=== PATIENT | female | born 1940 | race Asian ===

== ENCOUNTER 2017-04-19 14:00 | Inpatient (IN) | payer OTHER, MEDICAID ==
[~2017-04-19] VITALS: Ht 152.4 cm; Wt 66.7 kg
[2017-04-19 14:23] VITALS: BP 161/86
--- NOTE | 2017-04-19 14:30 | NUR ---
PATIENT PRESENTS TO ED WITH C/O hematemesis this afternoon with severe dizziness----denies abdominal pain, denies black stools, denies recent injury hx----htn, rx----atenolol . DENIES DIARRHEA; SKIN IS PINK/WARM/DRY; AAOX4 WITH EVEN AND STEADY GAIT; LUNGS CLEAR BL; HR EVEN AND REGULAR; PT DENIES ANY FEVER, CP, SOB, OR COUGH AT THIS TIME; PATIENT STATES PAIN OF 0/10 AT THIS TIME; VSS; PATIENT POSITIONED FOR COMFORT; HOB ELEVATED; BEDRAILS UP X2; BED DOWN. ER MD MADE AWARE OF PT STATUS.
--- NOTE | 2017-04-19 14:39 | NUR ---
Patient transferred to bed 6 via wheelchair by tech. Accompanied by family. RN evaluating patient at bedside.
[2017-04-19 15:09] LABS: BASOPHILS # (AUTO) 0.4 K/uL (0.00-0.22); HEMATOCRIT 36.7 % (36-48); HEMOGLOBIN 12.4 g/dL (12.0-16.0); MEAN CORPUSCULAR HEMOGLOBIN 34 pg (27-31); MEAN CORPUSCULAR HGB CONC 34 g/dL (33-37); MEAN CORPUSCULAR VOLUME 101 fL (80-94); MONOCYTES # (AUTO) 0.5 K/uL (0.8-1.0); PLATELET COUNT (AUTO) 247 K/uL (140-450); RED BLOOD CELL COUNT(AUTO) 3.64 MIL/uL (4.20-5.40); WHITE BLOOD COUNT (AUTO) 7.9 K/uL (4.8-10.8)
[2017-04-19 15:24] LABS: ANION GAP 13.2 (8-16); CARBON DIOXIDE 25.7 mmol/L (21-32); CHLORIDE 97 mmol/L (98-107); CREATININE 0.6 mg/dL (0.6-1.3); GLUCOSE 174 mg/dL (74-106); POTASSIUM 3.9 mmol/L (3.5-5.1); SODIUM SERUM 132 mmol/L (136-145); UREA NITROGEN, BLOOD 10 mg/dL (7-18)
[2017-04-19] MEDS ORDERED: NACL 0.9% 1,000 ML IV ONE (15:25)
[2017-04-19 15:28] LABS: ALBUMIN 3.6 g/dL (3.4-5.0); ASPARTATE AMINOTRANSFERASE 23 U/L (15-37); TOTAL BILIRUBIN 0.7 mg/dL (0.0-1.0)
[2017-04-19 15:33] LABS: APPEARANCE,URINE CLEAR (CLEAR); BILIRUBIN,URINE NEGATIVE (NEGATIVE); BLOOD, URINE NEGATIVE (NEGATIVE); COLOR,URINE YELLOW (YELLOW); LEUKOCYTE ESTERASE ,URINE NEGATIVE (NEGATIVE); NITRITE, URINE NEGATIVE (NEGATIVE); PH,URINE 7.5 (5.0-9.0); UGLUCOSE NEGATIVE (NEGATIVE)
[2017-04-19 15:46] LABS: RBC,URINE NONE SEEN /HPF (0-5); WBC,URINE 0-5 (RARE) /HPF (0-5)
[2017-04-19] MEDS ORDERED: ACETAMINOPHEN 325 MG TAB PO PRN (17:50)
[2017-04-19] MEDS ORDERED: HYDROcodone/APAP 7.5/325 MG 1 TAB PO PRN (17:50)
[2017-04-19] MEDS ORDERED: MECLIZINE 25 MG TAB PO PRN (18:15)
--- NOTE | 2017-04-19 18:35 | NUR ---
Patient will be admitted to care of DR GARCIA. Admited to TELE. Will go to room 119A. Belongings list completed. Report to CINTHYA AMES.
[2017-04-19 19:07] LABS: CHOL/HDL RATIO 3.2 (1-4.5); FREE T4 (FREE THYROXINE) 1.35 ng/dL (0.76-1.46); MAGNESIUM 1.7 mg/dL (1.8-2.4); THYROID STIMULATING HORMONE 0.94 uIU/mL (0.34-3.74)
--- NOTE | 2017-04-19 19:15 | NUR ---
RECEIVED REPORT FROM ER NURSE, AWAITING PTS ARRIVAL ON THE UNIT.
--- NOTE | 2017-04-19 19:30 | NUR ---
PT ARRIVED ON THE UNIT VIA GURNEY. PT IS AAOX4, NO S/S OF DISTRESS NOTED. PT IS IN STABLE CONDITION. PT IS ON RA. IV TO R WRIST 18 G, PATENT AND INTACT. RESPIRATIONS ARE EVEN AND UNLABORED. BOWEL SOUNDS ACTIVE. SKIN IS INTACT. INITIAL ASSESSMENT COMPLETED. PLAN OF CARE DISCUSSED WITH PT AND FAMILY AT THE BEDSIDE, VERBALIZED UNDERSTANDING. ALL SAFETY PRECAUTIONS MET, CALL LIGHT WITHIN REACH, WILL CONTINUE TO MONITOR.
--- NOTE | 2017-04-19 19:35 | NUR ---
PT HAS YELLOW WRIST BAND IN PLACE, BED ALARM IS ON, PT HAS YELLOW SOCKS ON, YELLOW SIGN POSTED OUTSIDE OF ROOM.
--- NOTE | 2017-04-19 19:45 | NUR ---
PT WILL BE NPO PER MD ORDERS. PT VERBALIZED UNDERSTANDING. PT WILL BE GOING TO CT SCAN, PT EDUCATED AND VERBALIZED UNDERSTANDING.
[2017-04-19 20:00] VITALS: BP 146/78
[2017-04-19] MEDS ORDERED: MAGNESIUM OXIDE 400 MG TAB PO SCH (20:30)
[2017-04-19] MEDS ORDERED: LORA-476 PO (20:37)
[2017-04-19] MEDS ORDERED: LOSA25TA22 PO (20:37)
[2017-04-19] MEDS ORDERED: ATEN50TA8 PO (20:37)
[2017-04-19] MEDS: DOCUSATE SODIUM 100 MG GELCAP PO SCH (20:41)
--- NOTE | 2017-04-19 21:00 | NUR ---
PT DID NOT WANT TO TAKE ATIVAN AT THE SCHEDULED TIME, PT STATED,"I WANT TO TAKE IT LATER." ATIVAN HELD FOR NOW.
[2017-04-19] MEDS: NACL 0.9% 1,000 ML IV SCH ×2 (21:05→23:43)
[2017-04-19] MEDS: ATENOLOL 50 MG TAB PO SCH (21:27)
[2017-04-19] MEDS: LORazepam 1 MG TAB PO SCH (21:35)
--- NOTE | 2017-04-19 22:00 | NUR ---
PT RESTING COMFORTABLY IN BED. NO S/S OF DISTRESS NOTED. ALL SAFETY PRECAUTIONS MET, CALL LIGHT WITHIN REACH WILL CONTINUE TO MONITOR.
--- NOTE | 2017-04-19 23:05 | NUR ---
PT GOING FOR CT SCAN, PT IN STABLE CONDITION NO S/S OF DISTRESS NOTED.
--- NOTE | 2017-04-19 23:45 | NUR ---
PT BACK IN UNIT FROM CT SCAN, PT RESTING COMFORTABLY IN BED. NO S/S OF DISTRESS NOTED. CALL LIGHT WITHIN REACH, WILL CONTINUE TO MONITOR.
[2017-04-20] VITALS: BP 108/63
[2017-04-20] MEDS: LORazepam 1 MG TAB PO SCH ×2 (01:20→20:38)
--- NOTE | 2017-04-20 01:20 | NUR ---
PT IS REQUESTING ATIVAN NOW. WILL ADMINISTER, ALL SAFETY PRECAUTIONS MET, CALL LIGHT WITHIN REACH.
--- NOTE | 2017-04-20 03:00 | NUR ---
PT HAS BILATERAL SCDS IN PLACE, PT EDUCATED ON BENEFITS, PT VERBALIZED UNDERSTANDING. ALL SAFETY PRECAUTIONS MET, WILL CONTINUE TO MONITOR.
--- NOTE | 2017-04-20 03:30 | NUR ---
PT RESTING COMFORTABLY IN BED WITH NO S/S OF DISTRESS NOTED. ALL SAFETY PRECAUTIONS MET CALL LIGHT IS WITHIN REACH.
[2017-04-20 04:00] VITALS: BP 100/49
[2017-04-20] MEDS: ONDANSETRON 4 MG/2 ML VIAL IVP PRN ×2 (04:56→17:49)
--- NOTE | 2017-04-20 04:56 | NUR ---
PT STATED SHE FELT NAUSEAS, PT MEDICATED PER MD ORDERS, WILL CONTINUE TO MONITOR.
[2017-04-20] MEDS: NACL 0.9% 1,000 ML IV SCH ×5 (05:55→19:58)
--- NOTE | 2017-04-20 07:19 | NUR ---
ENDORSED PLAN OF CARE TO DAY NURSE, PT IN STABLE CONDITION. NO S/S OF DISTRESS NOTED. ALL SAFETY PRECAUTIONS MET, CALL LIGHT WITHIN REACH.
--- NOTE | 2017-04-20 07:22 | NUR ---
RECEIVED PATIENT REPORT AT BEDSIDE FROM NIGHT NURSE. PATIENT IS AAOX4 AND SHOWS NO S/S OF ACUTE DISTRESS ON ROOM AIR. PATIENT DENIES PAIN, HEMATEMESIS, AND SOB. IV NOTED ON THE R W WITH IVF'S INFUSING WELL. SR ON TELE MONITOR. SKIN IS INTACT. PATIENT IS AWARE OF POC FOR TODAY AND VERBALIZED UNDERSTANDING. THE BED IS LOWERED WITH CALL LIGHT WITHIN REACH. WILL CONTINUE TO MONITOR.
[2017-04-20 08:00] VITALS: BP 107/58
--- NOTE | 2017-04-20 08:15 | NUR ---
SPOKE WITH DR LIN REGARDING IF SHE WOULD LIKE TO ADD AM LABS FOR PATIENT SINCE NONE WERE ORDERED FOR THIS MORNING.
[2017-04-20] MEDS: ATENOLOL 50 MG TAB PO SCH ×2 (09:00→20:27)
[2017-04-20] MEDS ORDERED: ATORVASTATIN 20 MG TAB PO SCH (09:00)
[2017-04-20] MEDS ORDERED: ASPIRIN 81 MG TAB.CHEW PO SCH (09:00)
[2017-04-20] MEDS: DOCUSATE SODIUM 100 MG GELCAP PO SCH ×2 (09:08→20:27)
--- NOTE | 2017-04-20 09:08 | NUR ---
ADMINISTERED SCHEDULED MEDICATIONS. PATIENT TOLERATED ACTIVITY WELL. ALL NEEDS MET AT THIS TIME. THE BED IS LOWERED WITH CALL LIGHT WITHIN REACH.
[2017-04-20 12:00] VITALS: BP 110/50
--- NOTE | 2017-04-20 12:36 | NUR ---
PATIENT IS SITTING IN BED EATING LUNCH. PATIENT STATES SHE IS NOT VERY HUNGRY AND IS VERY TIRED. PATIENT SHOWS NO S/S OF ACUTE DISTRESS ON ROOM AIR. THE BED IS LOWERED WITH CALL LIGHT WITHIN REACH.
--- NOTE | 2017-04-20 13:33 | NUR ---
PATIENT SHOWS NO S/S OF ACUTE DISTRESS ON ROOM AIR. FAMILY AT BEDSIDE. WILL CONTINUE TO MONITOR.
--- NOTE | 2017-04-20 15:10 | NUR ---
PATIENT IS IN BED SLEEPING AND SHOWS NO S/S OF ACUTE DISTRESS ON ROOM AIR. WILL CONTINUE TO MONITOR.
--- NOTE | 2017-04-20 15:20 | NUR ---
PATIENT FAMILY AT BEDSIDE AND BROUGHT PATIENTS WALKER. PATIENT AMB WITH WALKER TO RESTROOM AND C/O DIZZINESS. PATIENT IS BACK IN BED AFTER VOIDING. PATIENT VOMITED SMALL AMOUNT OF FOUL SMELLING HEMATEMESIS. DR LIN WAS NOTIFIED. PATIENT STATES SHE FEELS BETTER AFTER VOMITING. PATIENT REFUSED ZOFRAN FOR NAUSEA AND STATED SHE WILL HAVE IT LATER TONIGHT. THE BED IS LOWERED WITH CALL LIGHT WITHIN REACH. PATIENT WAS ADVISED TO CALL WHEN SHE GETS UP INCASE SHE GETS DIZZY AGAIN.
[2017-04-20 16:00] VITALS: BP 106/59
--- NOTE | 2017-04-20 18:00 | NUR ---
PATIENT HAS FAMILY AT BEDSIDE AND C/O DIZZINESS AND NAUSEA. PATIENT WAS GIVEN ZOFRAN 4 MG IVP AND ANTIVERT 12.5 MG PO. PATIENT SHOWS NO S/S OF ACUTE DISTRESS ON ROOM AIR. PATIENT WAS GIVEN ICE PACK BC SHE STATES IT WILL HELP HER WITH HER DIZZINESS WELL. THE BED IS LOWERED WITH CALL LIGHT WITHIN REACH. WILL CONTINUE TO MONITOR.
--- NOTE | 2017-04-20 19:20 | NUR ---
GAVE REPORT TO NIGHT NURSE AT BEDSIDE. PATIENT ENDORSED IN STABLE CONDITION.
--- NOTE | 2017-04-20 19:21 | NUR ---
RECEIVED REPORT FROM DAY NURSE. PT IS AAOX4, NO S/S OF DISTRESS NOTED. PT IS IN STABLE CONDITION. PT IS ON RA. IV TO R WRIST 18 G, PATENT AND INTACT. RESPIRATIONS ARE EVEN AND UNLABORED. BOWEL SOUNDS ACTIVE. SKIN IS INTACT. INITIAL ASSESSMENT COMPLETED. PLAN OF CARE DISCUSSED WITH PT AND FAMILY AT THE BEDSIDE, VERBALIZED UNDERSTANDING. ALL SAFETY PRECAUTIONS MET, CALL LIGHT WITHIN REACH, WILL CONTINUE TO MONITOR.
[2017-04-20 20:00] VITALS: BP 127/65
--- NOTE | 2017-04-20 20:25 | NUR ---
PT REQUESTED TO USE BEDPAN, PROVIDED PT WITH BEDPAN. PT VOIDED 350 ML.
[2017-04-20] MEDS: VALSARTAN 80 MG TAB PO SCH (20:27)
[2017-04-20] MEDS: PANTOPRAZOLE 40 MG INJ VIAL IVP SCH (20:28)
--- NOTE | 2017-04-20 20:28 | NUR ---
PTS DUE MEDICATIONS GIVEN, PT TOLERATED WELL. PT V/S STABLE NO S/S OF DISTRESS NOTED. PT REQUESTED ATIVAN TO BE GIVEN. ATIVAN GIVEN PER MD ORDERS. ALL SAFETY PRECAUTIONS MET, CALL LIGHT WITHIN REACH, WILL CONTINUE TO MONITOR.
--- NOTE | 2017-04-20 23:14 | NUR ---
PT RESTING COMFORTABLY IN BED. NO S/S OF DISTRESS NOTED. PT HAS NO COMPLAINTS AT THIS TIME. ALL NEEDS MET, ALL SAFETY PRECAUTIONS MET, CALL LIGHT WITHIN REACH, WILL CONTINUE TO MONITOR.
[2017-04-21] VITALS (11 sets, daily range): BP systolic 83–117; BP diastolic 40–60
--- NOTE | 2017-04-21 04:10 | NUR ---
PT RESTING IN BED NO S/S OF DISTRESS NOTED. CALL LIGHT WITHIN REACH, WILL CONTINUE TO MONITOR.
[2017-04-21 06:12] LABS: BASOPHILS # (AUTO) 0.3 K/uL (0.00-0.22); BASOPHILS % (AUTO) 2.9 % (0.0-2.0); EOSINOPHILS # (AUTO) 0.3 K/uL (0-0.4); EOSINOPHILS % (AUTO) 3.6 % (0.0-4.0); HEMATOCRIT 21.1 % (36-48); HEMOGLOBIN 7.1 g/dL (12.0-16.0); LYMPHOCYTES # (AUTO) 4.4 K/uL (2.5-16.5); LYMPHOCYTES % (AUTO) 48.9 % (20.5-51.1); MEAN CORPUSCULAR HEMOGLOBIN 35 pg (27-31); MEAN CORPUSCULAR HGB CONC 34 g/dL (33-37); MEAN CORPUSCULAR VOLUME 103 fL (80-94); MONOCYTES # (AUTO) 0.8 K/uL (0.8-1.0); MONOCYTES % (AUTO) 9.2 % (1.7-9.3); NEUTROPHILS # (AUTO) 3.1 K/uL (1.8-7.7); NEUTROPHILS % (AUTO) 35.4 % (42.2-75.2); PLATELET COUNT (AUTO) 197 K/uL (140-450); RED BLOOD CELL COUNT(AUTO) 2.06 MIL/uL (4.20-5.40); RED CELL DISTRIBUTION WIDTH 14.6 % (11.6-13.7); WHITE BLOOD COUNT (AUTO) 8.9 K/uL (4.8-10.8)
[2017-04-21 06:29] LABS: ANION GAP 9.3 (8-16); CARBON DIOXIDE 25.7 mmol/L (21-32); CHLORIDE 113 mmol/L (98-107); CREATININE 0.7 mg/dL (0.6-1.3); GLUCOSE 89 mg/dL (74-106); SODIUM SERUM 144 mmol/L (136-145); UREA NITROGEN, BLOOD 25 mg/dL (7-18)
[2017-04-21 06:32] LABS: PHOSPHORUS 2.9 mg/dL (2.5-4.9)
[2017-04-21] MEDS: NACL 0.9% 1,000 ML IV SCH ×2 (07:00→16:42)
--- NOTE | 2017-04-21 07:15 | NUR ---
ENDORSED PLAN OF CARE TO DAY NURSE, PT IN STABLE CONDITION. NO S/S OF DISTRESS NOTED.
--- NOTE | 2017-04-21 07:30 | NUR ---
PATIENTS HEMOGLOBIN AND HEMATOCRIT ARE 7.1/21.1. DR ARIAS WAS NOTIFIED OF THE DROP IN LABS. PATIENT IS DUE TO HAVE AN EGD FOR GI BLEED AT [address] HILL. NO NEW ORDERS. WILL CONTINUE TO MONITOR PATIENT.
[2017-04-21] MEDS: DOCUSATE SODIUM 100 MG GELCAP PO SCH ×2 (08:40→20:57)
[2017-04-21] MEDS: PANTOPRAZOLE 40 MG INJ VIAL IVP SCH (08:40)
[2017-04-21] MEDS: ATORVASTATIN 20 MG TAB PO SCH (08:40)
[2017-04-21] MEDS: ATENOLOL 50 MG TAB PO SCH (08:41)
[2017-04-21] MEDS: VALSARTAN 80 MG TAB PO SCH ×2 (08:41→20:59)
--- NOTE | 2017-04-21 08:48 | NUR ---
ADMINISTERED SCHEDULED MEDICATIONS. PATIENT TOLERATED WELL. PATIENT IS NOW BEING SEEN BY PHYSICAL THERAPY.
--- NOTE | 2017-04-21 08:50 | NUR ---
DR DE LA PAZ SAW PATIENT AND RECOMMENDED TO DISCONTINUE DIOVAN 80 MG AND TO CHANGE ORDER TO ATENOLOL TO [address] CUNHA AND DR LERNER ARE AWARE. PATIENT'S BP IS LOW AND IS CHARTED PLEASE SEE VS. DR'S ARE AWARE.
--- NOTE | 2017-04-21 09:13 | NUR ---
PATIENT HAS BEEN SCREENED AND CATEGORIZED MODERATE NUTRITION RISK. PATIENT WILL BE SEEN WITHIN 3-5 DAYS OF ADMISSION. 04/22/17-04/24/[address]
--- NOTE | 2017-04-21 09:15 | NUR ---
DR LERNER ORDERED TO REDUE BP WHILE PATIENT IS SITTING UP. PATIENT BP IS 108/[address] LERNER AWARE.
[2017-04-21] MEDS ORDERED: fentaNYL 0.05 MG/ML VIAL ONE (10:49)
[2017-04-21] MEDS ORDERED: MIDAZOLAM 2 MG/2 ML VIAL ONE (10:49)
[2017-04-21] MEDS ORDERED: diphenhydrAMINE 50 MG/ML VIAL ONE (10:49)
--- NOTE | 2017-04-21 11:01 | NUR ---
PATIENT WAS GIVEN MATERIALS TO BRUSH HER TEETH. PATIENT IS SITTING UP AND SHOWS NO S/S OF ACUTE DISTRESS ON ROOM AIR.
--- NOTE | 2017-04-21 11:20 | NUR ---
PATIENT BEING SEEN BY TRUCK LOADER AND UNLOADER.
--- NOTE | 2017-04-21 11:31 | NUR ---
PATIENT SHOWS NO S/S OF ACUTE DISTRESS ON ROOM AIR, AAOX4, AND DENIES PAIN. PATIENT LEFT UNIT IN STABLE CONDITION TO PROCEDURE.
[2017-04-21] MEDS ORDERED: MIDAZOLAM 2 MG/2 ML VIAL IV ONE (12:30)
[2017-04-21] MEDS ORDERED: fentaNYL 0.05 MG/ML VIAL IVP ONE (12:30)
--- NOTE | 2017-04-21 12:55 | NUR ---
PATIENT BACK ON UNIT BP IS 91/50, HR 79, V/S WILL BE CHARTED. PATIENT DENIES PAIN AND SOB. WILL CONTINUE TO MONITOR.
--- NOTE | 2017-04-21 13:11 | NUR ---
PATIENT IS AAOX4 AND SHOWS NO S/S OF ACUTE DISTRESS ON RA. WILL CONTINUE TO MONITOR.
--- NOTE | 2017-04-21 15:15 | NUR ---
PATIENT HAS BRANT (NEPHEW) AT BEDSIDE AND PT SHOWS NO S/S OF ACUTE DISTRESS ON ROOM AIR. PATIENT DENIES PAIN AND SOB. FAMILY MEMBER REQUEST TO HAVE NEW PCP BE WITH [facility]. NOTIFIED DR ARIAS. TO SEE PATIENT.
--- NOTE | 2017-04-21 17:10 | NUR ---
PATIENT IS SLEEPING AND SHOWS NO S/S OF ACUTE DISTRESS ON ROOM AIR. THE BED IS LOWERED WITH CALL LIGHT WITHIN REACH. PATIENT REPORT WAS GIVEN TO RAJAT MENDES. PATIENT ENDORSED IN STABLE CONDITION.
[2017-04-21] MEDS: PANTOPRAZOLE 40 MG TABEC PO SCH (17:30)
--- NOTE | 2017-04-21 19:30 | NUR ---
RECEIVED PT ON BED, AAOX4, VITAL SIGNS STABLE, DENIES ANY PAIN, NO HEMATEMESIS NOTED, VERBALIZED TOLERATING CLEAR LIQUID DIET, IVF INFUSING WELL, PLAN OF CARE DISCUSSED, SAFETY MEASURES IN PLACE, CALL LIGHT WITHIN REACH.
--- NOTE | 2017-04-21 19:44 | NUR ---
PT KEPT CLEAN, DRY AND COMFORTABLE, NEEDS ATTENDED, ENDORSED TO NEXT SHIFT ON STABLE CONDITION FOR CONTINUITY OF CARE.
[2017-04-21] MEDS: SUCRALFATE 1 GM TAB PO SCH (20:55)
[2017-04-21] MEDS: LORazepam 1 MG TAB PO SCH (20:56)
[2017-04-21] MEDS: ATENOLOL 25 MG TAB PO SCH (20:58)
--- NOTE | 2017-04-21 21:00 | NUR ---
DUE PO MEDICATION ADMINISTERED, REFUSED COLACE PER PT HAS DAILY BM WITH SOFT STOOL, HOLD BLOOD PRESSURE MEDICATION, BP ON THE LOW SIDE, WILL CONTINUE TO MONITOR CLOSELY, ALL NEEDS ATTENDED.
--- NOTE | 2017-04-21 21:50 | NUR ---
PT VOIDED PER BEDPAN, PERINEAL CARE DONE BY NAPOLEON TORRES, ASSIST IN REPOSITIONING, MONITORED CLOSELY.
[2017-04-22] VITALS: BP 92/48
--- NOTE | 2017-04-22 | NUR ---
PT SLEEPING, EASILY AROUSABLE, VITAL SIGNS STABLE, DENIES ANY PAIN, IVF INFUSING WELL, CONTINUE TO MONITOR CLOSELY.
[2017-04-22] MEDS: NACL 0.9% 1,000 ML IV SCH (01:01)
[2017-04-22 04:00] VITALS: BP 98/46
--- NOTE | 2017-04-22 04:00 | NUR ---
PT SLEEPING, EASILY AROUSABLE, VITAL SIGNS STABLE, DENIES ANY PAIN, NO EPISODE OF HEMATEMESIS NOTED, MONITORED CLOSELY.
[2017-04-22 06:13] LABS: BASOPHILS # (AUTO) 0.3 K/uL (0.00-0.22); BASOPHILS % (AUTO) 4.6 % (0.0-2.0); EOSINOPHILS # (AUTO) 0.5 K/uL (0-0.4); EOSINOPHILS % (AUTO) 6.9 % (0.0-4.0); LYMPHOCYTES # (AUTO) 1.8 K/uL (2.5-16.5); LYMPHOCYTES % (AUTO) 26.5 % (20.5-51.1); MEAN CORPUSCULAR HEMOGLOBIN 34 pg (27-31); MEAN CORPUSCULAR HGB CONC 33 g/dL (33-37); MEAN CORPUSCULAR VOLUME 104 fL (80-94); MONOCYTES # (AUTO) 0.6 K/uL (0.8-1.0); MONOCYTES % (AUTO) 9.4 % (1.7-9.3); NEUTROPHILS # (AUTO) 3.7 K/uL (1.8-7.7); NEUTROPHILS % (AUTO) 52.6 % (42.2-75.2); PLATELET COUNT (AUTO) 174 K/uL (140-450); RED BLOOD CELL COUNT(AUTO) 1.84 MIL/uL (4.20-5.40); RED CELL DISTRIBUTION WIDTH 14.7 % (11.6-13.7); WHITE BLOOD COUNT (AUTO) 6.9 K/uL (4.8-10.8)
[2017-04-22 06:30] LABS: ANION GAP 9.5 (8-16); CARBON DIOXIDE 25.3 mmol/L (21-32); CHLORIDE 114 mmol/L (98-107); CREATININE 0.5 mg/dL (0.6-1.3); GLUCOSE 80 mg/dL (74-106); POTASSIUM 3.8 mmol/L (3.5-5.1); SODIUM SERUM 145 mmol/L (136-145); UREA NITROGEN, BLOOD 16 mg/dL (7-18)
[2017-04-22] MEDS: PANTOPRAZOLE 40 MG TABEC PO SCH ×2 (06:32→17:23)
--- NOTE | 2017-04-22 06:34 | NUR ---
DUE PO MEDICATION GIVEN, DENIES ANY PAIN, IVF INFUSING WELL, PT WENT BACK TO SLEEP.
[2017-04-22 06:50] LABS: MAGNESIUM 1.7 mg/dL (1.8-2.4)
[2017-04-22 07:17] LABS: HEMATOCRIT 19.1 % (36-48); HEMOGLOBIN 6.3 g/dL (12.0-16.0)
--- NOTE | 2017-04-22 07:31 | NUR ---
PT AWAKE, NO SIGNS OF PAIN, REPORT GIVEN TO RN JIM FOR CONTINUITY OF CARE.
--- NOTE | 2017-04-22 07:40 | NUR ---
REPORT RECEIVED FROM DEALER CARD ROOM, PT SLEEPING QUIETLY IN NAD, RESP EVEN UNLABORED ON ROOM AIR, IVF INFUSING WELL, SITE CLEAR, PT DENIES PAIN OR DISCOMFORT, NO N/V, NO ACTIVE BLEEDING NOTED, PLAN OF CARE REVIEWED, PT VERBALIZED FULL UNDERSTANDING, CALL SANDRA WITHIN REACH, SIDE RAIL UP X2, WILL CONTINUE TO MONITOR.
[2017-04-22 08:00] VITALS: BP 112/46
[2017-04-22] MEDS: ATORVASTATIN 20 MG TAB PO SCH (08:37)
[2017-04-22] MEDS: SUCRALFATE 1 GM TAB PO SCH (08:37)
[2017-04-22] MEDS: DOCUSATE SODIUM 100 MG GELCAP PO SCH (08:37)
[2017-04-22] MEDS: VALSARTAN 80 MG TAB PO SCH (08:38)
[2017-04-22] MEDS: ATENOLOL 25 MG TAB PO SCH (08:38)
--- NOTE | 2017-04-22 10:45 | NUR ---
PT UP AMBULATING WELL WITH WALKER IN THE HALLWAY WITH PHYSICAL THERAPIST.
[2017-04-22 12:00] VITALS: BP 108/52
--- NOTE | 2017-04-22 12:10 | NUR ---
VITALS TAKEN, PT SITTING UP EATING LUNCH, (CLEAR LIQ) SALVATORE WELL, DENIES N/V, DENIES PAIN, LAB AT BEDSIDE FOR BLOOD DRAW.
[2017-04-22 12:43] LABS: MEAN CORPUSCULAR HEMOGLOBIN 34 pg (27-31); MEAN CORPUSCULAR HGB CONC 33 g/dL (33-37); MEAN CORPUSCULAR VOLUME 102 fL (80-94); MONOCYTES # (AUTO) 0.6 K/uL (0.8-1.0); PLATELET COUNT (AUTO) 211 K/uL (140-450); RED BLOOD CELL COUNT(AUTO) 1.99 MIL/uL (4.20-5.40); RED CELL DISTRIBUTION WIDTH 14.9 % (11.6-13.7); WHITE BLOOD COUNT (AUTO) 7.9 K/uL (4.8-10.8)
[2017-04-22 12:59] LABS: HEMATOCRIT 20.4 % (36-48); HEMOGLOBIN 6.7 g/dL (12.0-16.0)
[2017-04-22 13:00] LABS: BASOPHILS # (AUTO) 0.2 K/uL (0.00-0.22); EOSINOPHILS # (AUTO) 0.4 K/uL (0-0.4); EOSINOPHILS % (AUTO) 5.2 % (0.0-4.0); LYMPHOCYTES # (AUTO) 3.1 K/uL (2.5-16.5); LYMPHOCYTES % (AUTO) 39.2 % (20.5-51.1); MONOCYTES % (AUTO) 7.5 % (1.7-9.3); NEUTROPHILS # (AUTO) 3.6 K/uL (1.8-7.7); NEUTROPHILS % (AUTO) 46.1 % (42.2-75.2)
[2017-04-22] MEDS ORDERED: MAGNESIUM OXIDE 400 MG TAB PO SCH (13:45)
[2017-04-22] MEDS ORDERED: VALS80TA2 PO (13:46)
[2017-04-22] MEDS ORDERED: PANT40EC28 PO (13:46)
[2017-04-22] MEDS ORDERED: ATEN25TA2 PO (13:46)
[2017-04-22] MEDS ORDERED: SUCR1TAB56 PO (13:49)
[2017-04-22] MEDS ORDERED: FERR-252 PO (14:05)
[2017-04-22] MEDS ORDERED: ASCO500T45 PO (14:05)
--- NOTE | 2017-04-22 14:32 | NUR ---
Social Service Note: I faxed inquiry to [facility] . Per Safia from [facility] , patient has been accepting and they will send a Tagalog speaking nurse tomorrow to patient's home. I informed charge nurse [facility] services have been arranged.
[2017-04-22 16:00] VITALS: BP 94/48
--- NOTE | 2017-04-22 16:00 | NUR ---
DISCHARGE ORDER RECEIVED, PT'S FAMILY WILL COME PICK HER UP AROUND 1800
--- NOTE | 2017-04-22 18:00 | NUR ---
DISCHARGE INSTRUCTION AND RX INFO GIVEN AND EXPLAINED TO PT, PT IS OK TO ADVANCE DIET TOLERATED PER DR OZUNA, PT VERBALIZED FULL UNDERSTANDING, PT SALVATORE FULL LIQ DIET, DENIES N/V, NO ACTIVE BLEEDING NOTED, PT HOME MEDICATION RETREIVED FROM PHARMACY AND GIVEN BACK TO PT, IV DC'D, CATH TIP INTACT, BLEEDING CONTROLLED, PT UP EATING DINNER NOW, AWAITING FAMILY TO PICK HER UP.
--- NOTE | 2017-04-22 18:55 | NUR ---
PATIENT FAMILY HERE TO TAKE PATIENT HOME. WHEELCHAIRED PATIENT DOWN TO LOBBY. PATIENT IN STABLE CONDITION, NO S/S OF DISTRESS NOTED.
== END 2017-04-22 18:55 | disposition home health service (06) | DRG 377 ==
LOC: MED 14:00 → MTU 18:01
PROVIDERS: ADMIT Family Medicine; ATTEND Family Medicine
PROC: 0W3P8ZZ Control Bleeding in Gastrointestinal Tract, Via Natural or Artificial Opening Endoscopic (ICD-10-PCS; principal; 2017-04-21 12:20)
DX: K26.4 Chronic or unspecified duodenal ulcer with hemorrhage (principal); N17.0 Acute kidney failure with tubular necrosis; I67.4 Hypertensive encephalopathy; E83.42 Hypomagnesemia; I31.3 Pericardial effusion (noninflammatory); E11.65 Type 2 diabetes mellitus with hyperglycemia; E87.1 Hypo-osmolality and hyponatremia; D62 Acute posthemorrhagic anemia; E83.51 Hypocalcemia; I07.1 Rheumatic tricuspid insufficiency; G90.9 Disorder of the autonomic nervous system, unspecified; I10 Essential (primary) hypertension; E78.5 Hyperlipidemia, unspecified; R55 Syncope and collapse; F41.9 Anxiety disorder, unspecified; R32 Unspecified urinary incontinence; N28.1 Cyst of kidney, acquired; Z96.653 Presence of artificial knee joint, bilateral; R80.9 Proteinuria, unspecified; Z88.0 Allergy status to penicillin; Z79.899 Other long term (current) drug therapy; Z80.2 Family history of malignant neoplasm of other respiratory and intrathoracic organs; Z82.49 Family history of ischemic heart disease and other diseases of the circulatory system
CPT/HCPCS: 36415; 70450; 71010; 80048; 80053; 81001; 82140; 82150; 83036; 83690; 83735; 83880; 84100; 84439; 84443; 84484; 85025; 85610; 85730; 86886; 86900; 86901; 87081; 87086; 93005; 93880; 96360; 96361; 97110; 97116; 97530; 99285; C9113; J1200; J2250; J2405; J3010; J7030; J8597; Q0092